=== PATIENT | female | born 1990 | race African-American/Black ===

== ENCOUNTER 2019-05-04 05:00 | Inpatient (IN) | payer OTHER ==
[~2019-05-04 05:00] MED LIST: ELECTROLYTE-148 SOLN 1,000 ML IV SCH
[2019-05-04] MEDS ORDERED: CITRIC ACID/SODIUM CITRATE 30 ML UNIT-DOSE CUP PO ONE (05:30)
[2019-05-04] MEDS ORDERED: ELECTROLYTE-148 SOLN 1,000 ML IV SCH ×2 (05:30→06:45)
[2019-05-04 05:54] VITALS: BMI 31.7
--- NOTE | 2019-05-04 06:31 | HP ---
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 History Source: Patient Limitations to Obtaining History: No Limitations - Past Medical History ...: 2 ...Para: 1 ...Term: 1 ...: 0 ...Spon : 0 ...Induced : 0 ...Multiple Gestation: 0 ...EDC by Sono: 05/11/19 - Past Surgical History Past Surgical History: Yes: Hx Myomectomy: No Hx Transabdominal Cerclage: No - Smoking History Smoking history: Never smoked Have you smoked in the past 12 months: No - Alcohol/Substance Use Hx Alcohol Use: No History of Substance Use: reports: None - Social History Usual Living Arrangement: Yes: With Spouse History of Recent Travel: No Home Medications - Allergies Allergies/Adverse Reactions: Allergies Allergy/AdvReac Type Severity Reaction Status Date / Time No Known Allergies Allergy Verified 05/04/19 05:14 - Home Medications Home Medications: Ambulatory Orders Vitamins (Sjr) - 1 tab PO DAILY 11/03/14 Calcium Carbonate [Tums] 200 mg PO PRN 05/04/19 Physical Exam - Maternity Vital Signs: Vital Signs Temperature 98.0 F 05/04/19 05:44 Pulse Rate 80 05/04/19 05:44 Respiratory Rate 20 05/04/19 05:44 Blood Pressure 117/70 05/04/19 05:44 O2 Sat by Pulse Oximetry (%) Constitutional: Yes: Well Nourished, No Distress Neck: Yes: WNL Lungs: Clear to auscultation Breast(s): Yes: WNL - Abdominal Exam/OB Fundal Height: 40 Number of Fetuses: Single Presentation: Vertex Contractions: No Monitor Mode: External Heart Rate (range): 130 Heart Rate Location: [facility] Category: I Accelerations: Non-Uniform - Vaginal Exam/OB Dilatation (cm): closed Amniotic Membrane Status: Intact Presentation: Vertex/Position - Physical Exam Musculoskeletal: Yes: WNL Extremities: Yes: WNL Edema: No ...Motor Strength: WNL Psychiatric: Yes: WNL, Alert, Oriented Hemorrhage Risk Assessment - Risk Factors Medium Risk Factors: Yes: Prior , uterine surgery,or multiple laparotomies Risk Score: 1 Risk Level: Medium Risk Problem List - Problems (1) Previous delivery affecting , antepartum Problems reviewed: Yes Code(s): O34.219 - MATERNAL CARE FOR UNSP TYPE SCAR FROM PREVIOUS DEL (2) 39 weeks gestation of Code(s): Z3A.39 - 39 WEEKS GESTATION OF Assessment/Plan Previous Section IUP at 39 week Plan repeat Section
[2019-05-04] MEDS ORDERED: diphenhydrAMINE HCL 25 MG CAPSULE (FP) PO PRN (06:39)
[2019-05-04] MEDS ORDERED: HYDROmorphone HCL 2 MG TABLET PO PRN (06:39)
[2019-05-04] MEDS ORDERED: BENZOCAINE 20% 57 GM BOTTLE TP PRN (06:39)
[2019-05-04] MEDS ORDERED: BENZOCAINE 28 GM HEMORRHOIDAL OINTMENT PR PRN (06:39)
[2019-05-04] MEDS ORDERED: METHYLERGONOVINE MALEATE 0.2 MG/1 ML AMP IM PRN (06:39)
[2019-05-04] MEDS ORDERED: WITCH HAZEL 50% (TUCKS) 40 PAD/JAR PAD TP PRN (06:39)
[2019-05-04] MEDS ORDERED: OXYTOCIN 20 UNITS in 0.9% NS 20 UNIT/1,000 ML INFUS.BAG IV ONE ×2 (06:44→09:31)
[2019-05-04] MEDS ORDERED: CEFAZOLIN 2 GM/D5W 2 GM/50 ML ML IVPB ONE (06:44)
[2019-05-04] MEDS ORDERED: morphine SULFATE/PF 0.5 MG/ML (2cc Syringe - QUVA) ONE (06:48)
[2019-05-04] MEDS ORDERED: OXYTOCIN 10 UNITS/ML VIAL ONE (07:52)
[2019-05-04] MEDS ORDERED: morphine SULFATE/PF 0.5 MG/ML (2cc Syringe - QUVA) EP ONE (08:40)
[2019-05-04] MEDS ORDERED: ONDANSETRON 4 MG/2 ML VIAL IVPUSH PRN (08:40)
--- NOTE | 2019-05-04 08:45 | OP ---
Operative Note - Note: Operative Date: 05/04/19 Pre-Operative Diagnosis: Previous Section Operation: Repeat low transverse Section Findings: Live male Post-Operative Diagnosis: Same as Pre-op Surgeon: Deana Grubbs Family Law Paralegal: Rayshawn Leslie Anesthesiologist/MEDICAL ARTIST: Joslyn Reynoso MD Anesthesia: Spinal Estimated Blood Loss (mls): 600 Operative Report Dictated: Yes
[2019-05-04] MEDS: OXYTOCIN 20 UNITS in 0.9% NS 20 UNIT/1,000 ML INFUS.BAG IV SCH ×2 (09:39→19:15)
--- NOTE | 2019-05-04 11:19 | OP ---
DATE OF OPERATION: 05/04/2019 PREOPERATIVE DIAGNOSIS: Previous section, intrauterine at 39 weeks. OPERATION: Repeat low transverse section. FINDINGS: Live male delivered in OP position. POSTOPERATIVE DIAGNOSIS: Previous section, intrauterine at 39 weeks. SURGEON: Deana Grubbs MD RACK MAKER: ALEXANDREA Rodriguez ANESTHESIA: Spinal. DESCRIPTION OF PROCEDURE: Patient was taken to the operating room. Placed in supine position. Prepped and draped in usual sterile fashion. Time-out was performed in accordance with hospital regulation. Pfannenstiel skin incision was made through the patient's previous scar. Cautery was then used to go through layers of abdominal wall to the level of the fascia. Fascia was cut in the midline, and cautery was then used to open the fascia in smiling fashion. Kochers were then used to bluntly, sharply dissect the rectus muscles off the fascia. Muscle was split in the midline. Peritoneal cavity was then entered and carried upward and downward. Bladder retractor was then placed. Scalpel was then used to make a low transverse uterine incision. Incision was carried upward using bandage scissors. A live male was delivered in OT position. Nose and mouth suction performed. Shoulders were delivered without difficulty. Cord blood obtained. Cord pH obtained. Delayed cord clamping obtained. was then handed to nurse. Placenta was manually extracted from the uterus. Uterus was exteriorized and cleaned with clean lap pads. Uterine incision then closed continuous 0 Biosyn suture, 1st layer continuous and locking, 2nd layer imbricating the 1st layer. Hemostasis was achieved. An adhesion was noted on the anterior aspect of the uterus, and cautery was then used to cut the uterus away from the anterior aspect of the uterus. [id number] sutures were then used to close the uterus anteriorly. Interceed was then placed and sewn in. Uterus interiorized. Abdominal cavity cleaned with clean lap pads. Tubes and ovaries noted to be normal. Abdominal sweep done. Peritoneum was then closed using 0 Biosyn suture continuous stitch. Vicryl was then used to close the fascia after muscle was approximated using 0 Vicryl suture. Fascia was then closed in 2 ports using 0 Vicryl suture. Subcutaneous was then closed in interrupted using 0 Biosyn suture. Skin was then closed using 3-0 Vicryl in subcuticular fashion. Wound was washed and dressed. Patient tolerated procedure well. Estimated blood loss 600 mL. DEANA GRUBBS M.D. [id number]
[2019-05-04] MEDS: IBUPROFEN 800 MG/8 ML IJ IVPB PRN (22:22)
[2019-05-05] MEDS: OXYTOCIN 20 UNITS in 0.9% NS 20 UNIT/1,000 ML INFUS.BAG IV SCH (02:04)
[2019-05-05] MEDS: IBUPROFEN 800 MG/8 ML IJ IVPB PRN (05:32)
[2019-05-05] MEDS ORDERED: BISACODYL 10 MG SUPP.RECT PR PRN (06:39)
[2019-05-05] MEDS ORDERED: oxyCODONE HCL 5 MG TABLET PO PRN ×2 (06:39)
--- NOTE | 2019-05-05 08:53 | PN ---
Progress Note (short form) - Note Progress Note: Anesthesia Postop Check Note: Patient is s/p c section under spinal anesthesia with duramorph intrathecal for post operative pain control. Post op day one. Patient is doing well, no nausea , vomiting, headache, or backache. Pain under control. No adverse anesthetic complications. Dept of anesthesia will sign off care at this time.
--- NOTE | 2019-05-05 09:59 | PN ---
Post Progress Note - Subjective Subjective: 28 yo Para 2 status post repeat , seen and evaluated. She's out of bed to chair. Doing well. Post Day: 1 Type of Delivery: Repeat C/S Vital Signs: Vital Signs Temperature 98.2 F 05/05/19 09:25 Pulse Rate 86 05/05/19 09:25 Respiratory Rate 20 05/05/19 09:25 Blood Pressure 110/70 05/05/19 09:25 O2 Sat by Pulse Oximetry (%) 98 05/04/19 09:35 Breast Exam: Yes: Soft Uterus: Yes: Fundus @ umbilicus Incision: Yes: Dressing dry and intact Abdomen/GI: Yes: Abdomen soft Lochia: Yes: Rubra Lochia, amount: Small Extremities: Yes: Calves non-tender Activity: Other (OOB to chair) Problem List - Problems (1) Status post repeat low transverse section Problems reviewed: Yes Code(s): Z98.891 - HISTORY OF UTERINE SCAR FROM PREVIOUS SURGERY Assessment/Plan Status post repeat Low Transverse Ambulation Analgesia as needed Continue routine post op care
[2019-05-05] MEDS ORDERED: FLU VACCINE QUAD 60 MCG/0.5 ML (MDV 19-20) IM ONE (10:00)
[2019-05-05] MEDS ORDERED: DIPHTH,PERTUSS(ACELL),TET 0.5 ML DISP.SYRIN IM ONE (10:00)
[2019-05-05] MEDS ORDERED: FLU VACC QS2019-20(6MOS UP)/PF 60 MCG/0.5 ML SYRINGE IM ONE (10:00)
[2019-05-05 10:01] LABS: HEMATOCRIT 30.4 % (32.4-45.2); MCH 25.5 pg (25.7-33.7); MCHC 32.9 g/dl (32.0-36.0); MEAN CELL VOLUME 77.3 fl (80-96); MEAN PLT VOLUME 8.5 fl (7.5-11.1); PLATELET COUNT 283 K/MM3 (134-434); RBC 3.93 M/mm3 (3.60-5.2); WHITE BLOOD COUNT 20.5 K/mm3 (4.0-10.0)
[2019-05-05] MEDS: ACETAMINOPHEN 325 MG TABLET (FP) PO PRN (12:43)
[2019-05-05] MEDS: SIMETHICONE 80 MG TAB.CHEW (FP) PO PRN ×2 (12:44→21:04)
[2019-05-05] MEDS: IBUPROFEN 600 MG TABLET (FP) PO PRN ×2 (12:44→21:04)
--- NOTE | 2019-05-06 07:23 | PN ---
Post Note - Post Date of Delivery: 05/04/19 Post Day: 2 Vital Signs: Vital Signs - 24 hr 05/05/19 05/05/19 05/05/19 08:00 09:25 10:00 Temperature 98.2 F Pulse Rate 86 Respiratory 18 20 Rate Blood Pressure 110/70 O2 Sat by Pulse 99 Oximetry (%) 05/05/19 22:00 Temperature 98.7 F Pulse Rate 90 Respiratory 20 Rate Blood Pressure 118/70 O2 Sat by Pulse Oximetry (%) Labs: Laboratory Results - last 24 hr 05/05/19 09:40 WBC 20.5 H RBC 3.93 Hgb 10.0 L Hct 30.4 L MCV 77.3 L MCH 25.5 L MCHC 32.9 RDW 15.0 Plt Count 283 MPV 8.5 - Subjective Subjective: No Complaints - Objective Afebrile: Yes Breast: Not engorged Abdomen: Soft, Non-tender, Other (incision intact no drainage) Uterus: Fundus firm Vagina: Scant lochia Extremities: Non-tender - Assessment/Plan (1) Previous delivery affecting , antepartum Assessment: Other (POD 2 SP Section) Plan: Routine Care
[2019-05-06] MEDS: IBUPROFEN 600 MG TABLET (FP) PO PRN ×2 (08:22→20:15)
[2019-05-06] MEDS: ACETAMINOPHEN 325 MG TABLET (FP) PO PRN ×2 (08:23→20:15)
[2019-05-06] MEDS: SIMETHICONE 80 MG TAB.CHEW (FP) PO PRN ×2 (08:23→20:15)
--- NOTE | 2019-05-06 15:40 | PATH ---
Surgical Pathology Report Patient Name: ASYA LANE Med. Rec. #: [id number] /Age/Gender: 1990 (Age: 28) / F Account: [id number] Location: [facility] Taken: 05/04/2019 Received: 05/04/2019 Reported: 05/06/2019 Physicians: Deana Grubbs M.D. Specimen(s) Received PLACENTA Clinical History 39 weeks for repeat Final Diagnosis PLACENTA: THIRD TRIMESTER PLACENTA. TRIVASCULAR CORD. MEMBRANES WITH NO DIAGNOSTIC ABNORMALITIES. Electronically Signed Jack Nayak M.D. Gross Description The specimen is received fresh labeled placenta and is a 670 gram, 19.5 x 19.0 x 2.8 cm. placenta with attached membranes and umbilical cord. The attached membranes are howe, translucent with focal opacities and insert marginally. The umbilical cord measures 14 cm. in length and averages 1 cm. in diameter. The cord inserts eccentrically, 5 cm. to the nearest margin. No true knots or strictures are identified. Cut surface of the umbilical cord reveals 3 vessels. The surface is cabrera-blue with minimal fibrin deposition and appropriate caliber vessels. The maternal surface is red-brown with focal defects. Sectioning reveals red-brown, spongy parenchyma. No lesions are identified. Crm Marketing Specialist sections are submitted in three cassettes as follows: 1- membrane rolls and umbilical cord; 2-3- full thickness sections of placenta. /05/05/2019 [facility]05/05/2019
[2019-05-06] MEDS ORDERED: SENNOSIDES/DOCUSATE COMBO (SENNA PLUS) TABLET (UD) PO PRN (22:00)
[2019-05-06 23:07] VITALS: BP 118/75; PULSE 87; TEMP 97.6
--- NOTE | 2019-05-07 05:51 | DS ---
Physical Exam-BUILDING INSULATION SUPERVISOR Vital Signs: Vital Signs Temperature 97.6 F 05/06/19 22:00 Pulse Rate 87 05/06/19 22:00 Respiratory Rate 18 05/06/19 22:00 Blood Pressure 118/75 05/06/19 22:00 O2 Sat by Pulse Oximetry (%) 99 05/05/19 10:00 Constitutional: Yes: Well Nourished, No Distress Gastrointestinal: Yes: WNL, Soft ....Post : Yes: Uterus firm, Uterus non-tender Breast(s): Yes: WNL Musculoskeletal: Yes: WNL Extremities: Yes: WNL Edema: No Neurological: Yes: WNL, Alert, Oriented Labs: CBC, BMP 05/05/19 09:40 Delivery - Delivery Section: Low Flap Transverse Type of Anesthesia: Spinal Episiotomy/Laceration: None EBL (cc): 600 Delivery, Single - Stages of Labor Date of Delivery: 05/04/19 Time of Delivery: 07:26 Time Placenta Delivered: 07:27 Placenta: Yes: Spontaneous - Condition of Securities Clerk/Associate Scientist Present: No Gender: Male Weight: 9 lb 15 oz Position: OT Total Hours ROM (Hrs/Mins): 0/2 - 1 Minute Total Score: 9 5 Minutes Total Score: 9 - Feeding Plan Initial Plan: Elected not to breastfeed exclusively throughout hospitalization Discharge Summary Problems reviewed: Yes Reason For Visit: ADMIT C/S Current Active Problems 39 weeks gestation of (Acute) Previous delivery affecting , antepartum (Acute) Status post repeat low transverse section (Acute) Condition: Good - Instructions Diet, Activity, Other Instructions: Dr. Deana Grubbs Summer Associate discharge instructions Physical activity Resume your normal everyday activity as tolerated no heavy lifting or exercise until seen by your surgeon. You may walk unlimited eduardo of and climb stairs. You may resume driving the car when you feel safe and comfortable behind the wheel. No sexual activity as instructed by Dr. Grubbs. Wound care If you have a bandage, leave it on, and keep dry for 48-72 hours. After that time discard the outer bandage. If they are tapes on the skin under the out of bandage leave them in place. They will peel off in the next 7 to 10 days. Do Not Peel them off. You may shower the day after surgery. If there are tapes present on the skin, you may shower over them. Diet There are no dietary restrictions. Eat healthy, high-fiber foods. Drink 6 to 8 glasses of liquid each day. This will assist in keeping your bowels are regular. Pain management You may take Tylenol or acetaminophen or Ibuprofen (for example, Motrin, Advil etc.) from my pain prescription medication is ordered should be taken as prescribed for moderate to severe pain. Call Dr. Grubbs for any of the following: Severe pain not relieved by medication Fever of 101 or higher Excessive bleeding or drainage on dressing Inability to urinate Call the office at [phone] for an appointment in seven days. Referrals: Deana Grubbs MD [Staff Physician] - Disposition: HOME - Home Medications Comprehensive Discharge Medication List: Ambulatory Orders Vitamins (Sjr) - 1 tab PO DAILY 11/03/14 Calcium Carbonate [Tums] 200 mg PO PRN 05/04/19 Ibuprofen [Motrin -] 600 mg PO QID #28 tablet 05/06/19
[2019-05-07] MEDS: SIMETHICONE 80 MG TAB.CHEW (FP) PO PRN (06:27)
[2019-05-07] MEDS: ACETAMINOPHEN 325 MG TABLET (FP) PO PRN (06:27)
[2019-05-07] MEDS: IBUPROFEN 600 MG TABLET (FP) PO PRN (06:28)
[2019-05-07 07:57] LABS: HEMATOCRIT 28.2 % (32.4-45.2); HEMOGLOBIN 9.3 GM/dL (10.7-15.3); MCH 25.5 pg (25.7-33.7); MCHC 33.1 g/dl (32.0-36.0); MEAN CELL VOLUME 76.9 fl (80-96); MEAN PLT VOLUME 8.2 fl (7.5-11.1); PLATELET COUNT 301 K/MM3 (134-434); RBC 3.67 M/mm3 (3.60-5.2); WHITE BLOOD COUNT 12.1 K/mm3 (4.0-10.0)
== END 2019-05-07 12:45 | disposition home or self-care (01) | DRG 788 ==
LOC: JLDR 05:00 → J3W 09:56
PROVIDERS: ADMIT Obstetrics & Gynecology; ATTEND Obstetrics & Gynecology
PROC: 10D00Z0 Extraction of Products of Conception, High, Open Approach (ICD-10-PCS; principal; 2019-05-04)
DX: O34.211 Maternal care for low transverse scar from previous cesarean delivery (principal); N85.8 Other specified noninflammatory disorders of uterus; Z3A.39 39 weeks gestation of pregnancy; Z37.0 Single live birth; D57.3 Sickle-cell trait
CPT/HCPCS: 36415; 36600; 82803; 85027; 88307-TC; 90686; 90715; G0008